=== PATIENT | female | born 2000 | race Caucasian/White ===

== ENCOUNTER 2021-12-05 12:25 | Emergency (ER) | payer MEDICAID ==
[~2021-12-05] VITALS: Ht 180.3 cm; Wt 88.6 kg
[2021-12-05 12:58] VITALS: BP 138/92
[2021-12-05] MEDS ORDERED: AMOX-101 PO (14:11)
[2021-12-05] MEDS ORDERED: IBUP-1986 PO (14:11)
== END 2021-12-05 14:22 | disposition home or self-care (01) ==
LOC: ER 12:27
DX: K08.89 Other specified disorders of teeth and supporting structures (principal); Z79.2 Long term (current) use of antibiotics; Z79.899 Other long term (current) drug therapy
CPT/HCPCS: 99283